=== PATIENT | female | born 1940 | race Caucasian/White ===

== ENCOUNTER 2019-09-11 08:34 | Observation (INO) | payer MEDICARE, MEDICAID ==
[~2019-09-11] VITALS: Ht 154.9 cm; Wt 86.4 kg
[2019-09-11 09:28] LABS: CKMB 10.1 U/L (0.0-3.6); CREATINE KINASE 290 UL (21-215)
[2019-09-11 09:30] LABS: TROPONIN-I 2.831 ng/mL (0.000-0.060)
[2019-09-11] MEDS ORDERED: BACLOFEN20 M1 PO (09:36)
[2019-09-11] MEDS ORDERED: LASIX40 MG PO (09:37)
[2019-09-11] MEDS ORDERED: LEXAPRO10 MG PO (09:37)
[2019-09-11] MEDS ORDERED: SYNTHROID100 MCG PO (09:38)
[2019-09-11] MEDS ORDERED: PROTONIX40 MG PO (09:38)
[2019-09-11] MEDS ORDERED: MIRAPEX1.5 MG PO (09:39)
[2019-09-11] MEDS ORDERED: K-TAB10 MEQ PO (09:39)
[2019-09-11] MEDS ORDERED: KEPPRA250 MG PO (09:40)
[2019-09-11] MEDS ORDERED: PROAIR HFA8.5 G1 INH (09:40)
[2019-09-11 09:41] VITALS: BP 93/59
--- NOTE | 2019-09-11 10:26 | NUR ---
TRANSFER FROM ER BY STRETCHER. CALL LIGHT IN REACH. WILL CONT. PLAN OF CARE.
[2019-09-11 10:39] LABS: BASOPHILS 0.2 % (0-2); EOSINOPHILS 0.6 % (0-7); HEMATOCRIT 40.2 % (36.0-48.0); HEMOGLOBIN 12.6 g/dL (12-16); IMMATURE GRANULOCYTES 0.2 % (0-5); LYMPHOCYTES 14.3 % (15-50); MCH 28.3 pg (26.0-34.0); MCHC 31.3 g/dL (31.0-37.0); MCV 90.1 fL (80.0-100.0); MEAN PLATELET VOLUME 11.2 fL (7.4-10.4); MONOCYTES 4.1 % (2-11); NEUTROPHILS 80.6 % (40-80); PLATELET COUNT 197 10x3/uL (130-400); RBC 4.46 10x6/uL (4.00-5.40); RDW 14.2 % (11.5-14.5); WBC 10.3 10x3/uL (4.8-10.8)
[2019-09-11 10:41] VITALS: BP 98/50; Ht 154.9 cm; Wt 86.4 kg
[2019-09-11 10:47] LABS: INR 1.03 (0.85-1.17); PROTIME 13.4 SECONDS (11.6-15.0)
[2019-09-11 10:49] LABS: D-DIMER-QUANTITATIVE 0.89 ug/mLFEU (0.20-0.54)
[2019-09-11 10:50] LABS: ALBUMIN 3.8 g/dL (3.4-5.0); BILIRUBIN - TOTAL 0.28 mg/dL (0.2-1.3); CALCIUM 8.4 mg/dL (8.5-10.1); CARBON DIOXIDE 28.3 mmol/L (21.0-32.0); CREATININE - SERUM 1.2 mg/dL (0.6-1.3); POTASSIUM - SERUM 4.3 mmol/L (3.5-5.1); PROTEIN - SERUM 6.9 g/dL (6.4-8.2)
[2019-09-11 12:14] VITALS: BP 105/51
--- NOTE | 2019-09-11 13:59 | NUR ---
ECHO DONE AT BEDSIDE.
[2019-09-11 15:23] VITALS: BP 94/55
[2019-09-11 20:00] VITALS: BP 91/49
[2019-09-12] VITALS: BP 92/56
[2019-09-12 04:00] VITALS: BP 83/39
--- NOTE | 2019-09-12 04:07 | NUR ---
I have reviewed this patient and I concur with the Shift Assessment completed by the Licensed Practical Nurse today this shift.
[2019-09-12 06:49] LABS: BASOPHILS 0.2 % (0-2); HEMATOCRIT 36.9 % (36.0-48.0); HEMOGLOBIN 11.4 g/dL (12-16); LYMPHOCYTES 21.8 % (15-50); MCH 28.1 pg (26.0-34.0); MCHC 30.9 g/dL (31.0-37.0); MCV 90.9 fL (80.0-100.0); MEAN PLATELET VOLUME 11.1 fL (7.4-10.4); MONOCYTES 7.1 % (2-11); NEUTROPHILS 68.9 % (40-80); PLATELET COUNT 176 10x3/uL (130-400); RBC 4.06 10x6/uL (4.00-5.40); RDW 14.5 % (11.5-14.5)
[2019-09-12 07:02] LABS: WBC 5.5 10x3/uL (4.8-10.8)
[2019-09-12 08:00] VITALS: BP 84/43
[2019-09-12 08:37] LABS: ALBUMIN 3.3 g/dL (3.4-5.0); ALKALINE PHOSPHATASE 50 U/L (30-120); ALT (SGPT) 19 U/L (10-68); BILIRUBIN - TOTAL 0.35 mg/dL (0.2-1.3); CALC OSMOLALITY 283 mosm/kg (275-300); CARBON DIOXIDE 28.6 mmol/L (21.0-32.0); CHLORIDE - SERUM 106 mmol/L (98-107); CREATINE KINASE 352 UL (21-215); CREATININE - SERUM 0.9 mg/dL (0.6-1.3); GLUCOSE 91 mg/dL (74-106); POTASSIUM - SERUM 4.6 mmol/L (3.5-5.1); SODIUM 142 mmol/L (136-145); UREA NITROGEN 14 mg/dL (7-18); eGFR NON AFRICAN AMERICAN 64 mL/min (90-120)
[2019-09-12 08:38] LABS: TROPONIN-I 2.058 ng/mL (0.000-0.060)
--- NOTE | 2019-09-12 10:00 | NUR ---
PT'S DAUGHTER IN [facility] DEMANDING FOR RIGHT AC IV TO BE TAKEN OUT OF PT. YANIQUE;KARRI RN DC'D RIGHT AC IV AND INSERTED A LEFT FA 22G IV.
--- NOTE | 2019-09-12 11:23 | NUR ---
DR. GARCIA STATES TO ME HE IS OK FOR PT TO D/C TODAY. I VERBALIZED UNDERSTANDING.
[2019-09-12] MEDS ORDERED: LOPRESSOR25 MG PO (11:46)
[2019-09-12] MEDS ORDERED: LIPITOR20 MG PO (11:46)
[2019-09-12] MEDS ORDERED: ASPIRIN325 MG PO (11:55)
--- NOTE | 2019-09-12 13:24 | NUR ---
PT LUCY. TELEMETRY LUCY'Emiliano.
[2019-09-12] MEDS ORDERED: NITROSTAT0.4 MG SL (13:46)
--- NOTE | 2019-09-12 14:40 | NUR ---
LEFT FA 22G IV DC'D WITH CATH INTACT. DISCHARGE INSTRUCTIONS AND TEACHING DONE WITH PT AND PT'S DAUGHTER WHO IS AT BEDSIDE. ALL QUESTIONS ANSWERED AND THEY HAVE NO FURTHER QUESTIONS. PT STATES SHE WANTS [employer] TO SIGN HER CHART COPY PAPERWORK. DAUGHTER SIGNED DISCAHRGE CHART COPY. PT'S DAUGHTER STATES THEIR RIDE IS ON THE WAY TO PICK THEM UP. I VERBALIZED UNDERSTANDING.
--- NOTE | 2019-09-12 15:17 | NUR ---
PT TAKEN OUT VIA WC BY RESEARCH FELLOW AND LEFT WITH ALL BELONGINGS AND DAUGHTER IN PERSONAL VEHICLE.
--- NOTE | 2019-09-13 07:32 | EC ---
PATIENT:LINNEA GÓMEZ DATE OF SERVICE: 09/11/19 SEX: F MEDICAL RECORD: [id number] DATE OF : 40 LOCATION:D.M2 D.211 AGE OF PATIENT: 79 ADMISSION DATE: 09/11/19 REFERRING PHYSICIAN: INTERPRETING PHYSICIAN: JUAN CARLOS GARCIA MD ECHOCARDIOGRAM REPORT ECHO CHARGES 4 ECHO COMPLETE Date: 09/11/19 CLINICAL DIAGNOSIS: NSTEMI ECHOCARDIOGRAPHIC MEASUREMENTS (adult normal given) AC root (d.<3.7cm) 3.2 cm LV Septum d (<1.2 cm> 0.7 cm Valve Excursion 1.9 cm LV Septum (systole) 1.1 cm Left Atria (s.<4.0cm> 3.7 cm LVPW d(<1.2cm) 1.0 cm RV (d.<2.3cm) 2.0 cm LVPW (sytole) 1.5 cm LV diastole(<5.6CM) 7.3 cm MV E-F(>70mm/sec) cm LV systole 5.9 cm LVOT Diameter 2.0 cm MV exc.(>10mm) cm Est.ejection fraction (50-75%) % DOPPLER: LVIT cm/sec A 80 cm/sec E 72 cm/sec LA cm/sec RVSP 30.9 mmHg LVOT 77 cm/sec AOP1/2T m/s Asc. Ao 137 cm/sec RVOT 60 cm/sec RA cm/sec PA 67 cm/sec AV Gradient Peak 7.5 mmHg AV Mean 4.3 mmHg AV Area 1.6 cm MV Gradient Peak 2.1 mmHg MV Mean 1.4 mmHg MV Area cm COMMENTS: Director Of [employer]: Maggie LINARES [place] Ship Laborer: Joao Garcia TAPE# PACS Pericardial Effusion N DATE OF SERVICE: PROCEDURE: Transthoracic echocardiogram. FINDINGS: 1. Left ventricle is mildly dilated. Ejection fraction is 40% with anterior septal hypokinesis. 2. Left atrium is normal size, shape, and function. 3. Aortic valve is normal. 4. Mitral valve has trace mitral regurgitation, otherwise normal. ECHOCARDIOGRAM REPORT [id number] LINNEA GÓMEZ 5. Tricuspid valve has trace tricuspid regurgitation. RVSP is 30.9 mmHg. 6. The right ventricle is normal size, shape, structure, and function. 7. Right atrium is normal. IMPRESSION: The patient has regional wall motion abnormalities suggestive of ischemic heart disease with ejection fraction around 40%. NTS:[id number] Voice Confirmation ID: [id number] DOCUMENT ID: [id number] JUAN CARLOS GARCIA MD at [id number] CC: [id number] DICTATION DATE: 09/12/19 1247 MANOMETER TECHNICIAN: [id number]/12/[id number] DIS IN 09/12/19 [place] [id number] [place] [id number]
== END 2019-09-12 15:18 | disposition home or self-care (01) ==
LOC: D.ER 08:34 → D.M2 09:31 → OBSVTIME 09-12 → D.M2 09-12 15:18
PROVIDERS: Family Medicine; ADMIT Emergency Medicine; ATTEND Emergency Medicine
DX: I21.4 Non-ST elevation (NSTEMI) myocardial infarction (principal); J81.1 Chronic pulmonary edema; E03.9 Hypothyroidism, unspecified; J44.9 Chronic obstructive pulmonary disease, unspecified; F32.9 Major depressive disorder, single episode, unspecified; R06.02 Shortness of breath; I25.10 Atherosclerotic heart disease of native coronary artery without angina pectoris

== ENCOUNTER 2019-09-17 11:15 | Inpatient (IN) | payer MEDICARE ==
[~2019-09-17] VITALS: Ht 154.9 cm; Wt 88.9 kg
[2019-09-17] VITALS (32 sets, daily range): BP systolic 76–128; BP diastolic 35–74; BMI 36.3
--- NOTE | ~2019-09-17 | HEMODYNAMI ---
PATIENT:LINNEA GÓMEZ MEDICAL RECORD: [id number] : 40 LOCATION:NAVARRO [facility] ADMISSION DATE: 09/17/19 Generatedon:09/18/201915:01 Patient name: LINNEA GÓMEZ Patient #: [id number] SSN: [id number] : 1940 Date of study: 09/18/2019 Page: Of Hemodynamic Procedure Report Patient Data Patient Demographics Procedure consent was obtained First Name: LINNEA Gender: Female Last Name: DALIA : 1940 Patient #: [id number] Age: 79 year(s) Race: SSN: [id number] Additional ID: [id number] Contact details [address]: [address] [place] [address] State: [place] City: [place] Zip code: [address] Past Medical History Allergies Allergen Reaction Date Comments Reported Other allergy 09/18/2019 NK Admission Admission Data Admission Date: 09/17/2019 Admission Time: 13:23 Arrival Date: 09/18/2019 Arrival Time: 0:00 Room #: MARCOS Height (in.): 61.02 BSA: 1.86 (m2) Height (cm.): 155 BMI: 36.21 (kg/m2) Weight (lbs.): 191.8 Weight (kg.): 87 Lab Results Lab Result Date: 09/18/2019 Lab Result Time: 0:00 Biochemistry Name Units Result Min Max BUN mg/dl 25 --(----)-* 7 18 CK-MB ng/ml 4 --(----)*- 0 3.6 Creatinine mg/dl 1.2 --(---*)-- 0.6 1.3 Creatinine l 190 --(---*)-- 21 215 Kinase eGFR ml/min 46 *-(----)-- 90 120 NONAFRICAN Troponin l ng/ml 0.072 --(----)*- 0 0.06 CBC Name Units Result Min Max Hematocrit % 36.8 *-(----)-- 42 54 Hemoglobin g/dl 11.7 *-(----)-- 13.5 17.5 Procedure Procedure Types Cath Procedure Diagnostic Procedure [facility] w/Coron[facility] Procedure Description Procedure Date Procedure Date: 09/18/2019 Procedure Start Time: 14:49 Procedure End Time: 14:58 Procedure Staff Name Function Esau Vera MD Performing Physician Mady Waterman RT Monitor Viv Lewis RT Scrub Janice Diane RN Nurse Indication Chest pain Procedure Data Cath Procedure Fluoroscopy Diagnostic fluoroscopy Total fluoroscopy Time: 1.1 time: 1.1 min min Diagnostic fluoroscopy Total fluoroscopy dose: 517 dose: 517 mGy mGy Contrast Material Contrast Material Type Amount (ml) Isovue 300 45 Entry Location Entry Primary Successful Side Size Upsize Upsize Entry Closure Succes sful Closure Location (Fr) 1 (Fr) 2 (Fr) Remarks Device Remarks Femoral Right 5 Fr Exoseal artery Estimated blood loss: 10 ml Diagnostic catheters Device Type Used For End Catheter Placement MULTIPACK JL 4.0 5Fr Procedure catheter MULTIPACK 3DRC 5Fr Procedure catheter MULTIPACK Pigtail 5 Fr Ventriculography catheter Procedure Complications No complications Procedure Medications Medication Administration Route Dosage 0.9% NaCl I.V. 100 ml/hr Oxygen 6 l/min Lidocaine 2% added to field 20 Heparin Flush Bag added to field 2 bags (1000units/500ml NS) Versed I.V. 1 mg Hemodynamics Rest BSA: 1.86 (m2) HGB: 11.7 (g/dl) O2 Consumption: Estimated: 167.15 (ml/min) O2 Co nsumption indexed: Estimated:89.87 (ml/min/m) Heart Rate: 69 (bpm) Pressure Samples Time Site Value (mmHg) Purpose Heart Use Rate(bpm) 14:53 LV 109/25,32 Snapshot 77 Gradients Valve Time Site Site Mean SEP/DFP Peak To Heart Use 1 2 (mmHg) (sec/min) Peak Rate (mmHg) (bpm) Aortic 14:53 LV AO 74 Snapshots Pre Cath Intra NCS Post Cath Vital Signs Time Heart Resp SPO2 etCO2 NIBP Rhythm Pain Sedation Rate (ipm) (%) (mmHg) (mmHg) Status Level (bpm) 14:17:25 69 16 100 0 107/59(81) NSR 0 (11) 10(A) , No pain 14:21:42 66 14 96 0 117/52(85) NSR 0 (11) 10(A) , No pain 14:25:55 66 10 99 0 107/57(87) NSR 0 (11) 10(A) , No pain 14:30:05 65 15 100 0 117/64(86) NSR 0 (11) 10(A) , No pain 14:34:13 68 19 99 0 118/63(96) NSR 0 (11) 10(A) , No pain 14:39:12 66 12 99 0 Measuring NSR 0 (11) 10(A) , No pain 14:39:31 67 12 99 0 113/63(82) NSR 0 (11) 10(A) , No pain 14:43:39 62 12 100 0 113/59(77) NSR 0 (11) 10(A) , No pain 14:48:38 67 16 99 0 Measuring NSR 0 (11) 10(A) , No pain 14:48:42 67 16 98 0 109/58(82) NSR 0 (11) 10(A) , No pain 14:52:54 65 16 98 0 121/62(89) NSR 0 (11) 10(A) , No pain 14:57:08 64 13 100 0 109/61(80) NSR 0 (11) 10(A) , No pain Medications Time Medication Route Dose Verified Delivered Reason Notes Effe ctiveness by by 14:16:11 Oxygen HFNC 6 Esau Janice for low 02 l/min St Tarik Diane satjen BAIRD RN 14:16:11 0.9% NaCl I.V. 100 Esau Janice used for ml/hr ChuyTarik Diane procedure MD SCOTT 14:16:31 Lidocaine 2% added 20ml Esau Cifuentes for local to vial [facility] John anesthetic field MD BAIRD 14:16:38 Heparin Flush added 2 Esau Cifuentes used for Bag to bags St Tarik Vera procedure (1000units/500ml field MD BAIRD NS) 14:48:18 Versed I.V. 1 mg Esau Janice for ChuyTarik Diane sedation pediatric social worker Log Time Note 13:43:24 Informed consent obtained and on chart 13:44:38 ACC Patient presents with Non-STEMI CCS Anginal Class 3--Marked limitation of physical activity, angina occurs with ordinary activity.. 14:00:28 Indication : Chest pain 14:02:02 Lab Result : Creatinine 1.2 mg/dl 14:02:02 Lab Result : BUN 25 mg/dl 14:02:02 Lab Result : Hemoglobin 11.7 g/dl 14:02:02 Lab Result : Hematocrit 36.8 % 14:02:02 Lab Result : eGFR NONAFRICAN 46 ml/min 14:02:02 Lab Result : CK-MB 4 ng/ml 14:02: Lab Result : Creatinine Kinase 190 l 14:02: Lab Result : Troponin l 0.072 ng/ml 14:02:10 Arrival Date: 09/18/2019 12:00:00 AM 14:02:15 Patient Height : 61.02 inches 14:02:19 Patient Weight : 191.8 lbs 14:02:35 Procedure Status Urgent Heart Cath (IP). 14:02:39 Janice Diane RN sent for patient. Start room use. 14:02:42 Time tracking: Regular hours (M-F 7:00 - 5:00) 14:02:49 Plan of Care:Hemodynamics will remain stable., Cardiac rhythm will remain stable., Comfort level will be maintained., Respiratory function will remain adequate., Patient/ family verbilizes understanding of procedure., Procedure tolerated without complication., Recovers from procedure without complications.. 14:03:14 Patient allergic to Other allergyNKDA 14:07:40 Patient received from CVICU to CCL 1 Alert and oriented. Tansferred to table in Supine position. 14:07:43 Warm blankets applied, and yonatan hugger turned on for patient comfort. 14:07:44 Correct patient and procedure confirmed by team. 14:07:44 ECG and BP/O2 sat monitors applied to patient. 14:15:59 Vital chart was started 14:16:11 Oxygen 6 l/min HFNC was administered by Janice Diane RN; for low 02 sats; Verbal order read back and verified. 14:16:11 0.9% NaCl 100 ml/hr I.V. was administered by Janice Diane RN; used for procedure; Verbal order read back and verified. 14:16:31 Lidocaine 2% 20ml vial added to field was administered by Esau Vera MD; for local anesthetic; Verbal order read back and verified. 14:16:38 Heparin Flush Bag (1000units/500ml NS) 2 bags added to field was administered by Esau Vera MD; used for procedure; Verbal order read back and verified. 14:18:07 Baseline sample Acquired. 14:18:13 Rhythm: sinus rhythm 14:18:16 Full Disclosure recording started 14:18:38 H&P Date Dictated: 09/17/2019 Within 30 days and on chart., H&P Addendum completed by physician on day of procedure. (MUST COMPLETE FOR ALL OUTPATIENTS). 14:18:40 Pre-procedure instructions explained to patient. 14:18:43 Family unavailable. 14:18:45 Patient NPO since Midnight. 14:18:50 Is the patient allergic to Iodine/contrast media? No. 14:18:58 Is patient on blood thinner?No 14:19:01 Patient diabetic? No. 14:19:07 Snore? Unknown 14:19:09 Sleep apnea? No 14:19:14 Airway obstruction? Yes copd 14:21:14 Dentures? No ? 14:21:21 Patient pain scale 0/10 ?. 14:21:33 IV patent on arrival in right forearm with 0.9% NaCl at [facility]. 14:21:38 Lab results completed and on chart. 14:21:46 Right groin area was prepped with chlora-prep and draped in sterile fashion 14:21:50 Alarms reviewed by R. N. 14:21:52 Sharps counted by scrub and verified by R.N. 14:21:53 Physician paged 14:23:03 Use device set Femoral Dx 14:23:05 ACIST Syringe (15472) opened to sterile field. 14:23:06 Bag Decanter (2002) opened to sterile field. 14:23:06 Medline Cath Pack ([id number]) opened to sterile field. 14:23:07 ACIST Hand Control (23515) opened to sterile field. 14:23:07 ACIST Manifold (03883) opened to sterile field. 14:23:08 DIAGNOSTIC Multipack 5Fr catheter set (CF0903) opened to sterile field. 14:23:11 Tegaderm 4 x 4 (1626W) opened to sterile field. 14:23:12 SHEATH 5FR Braddock (ZVH679) opened to sterile field. 14:23:13 EMERALD Guide Wire (942-817) opened to sterile field. 14:25:06 Pt arrived to CL on HFNC @ 6L. REN EtCO2 d/t HFNC. 14:47:49 Physician arrived 14:47:49 --------ALL STOP TIME OUT------ 14:47:50 Final Timeout: patient, procedure, and site verified with staff and physician. All members of the team are in agreement. 14:47:52 Right groin site verified by team. 14:47:58 Fire Safety Assessment: A--An alcohol-based skin anteseptic being used preoperatively., C--Open oxygen or nitrous oxide is being used., D--An ESU, laser, or fiber-optic light is being used. 14:48:03 Physical assessment completed. ASA score P 3 - A patient with severe systemic disease as per Esau Vera MD. 14:48:09 2) 60-89 Mildly reduced kidney function, and other findings (as for stage 1) point to kidney disease. 14:48:16 Maximum allowable contrast dose (3.7 X eGFR X 0.75)127 ml. 14:48:18 Versed 1 mg I.V. was administered by Janice Diane RN; for sedation; Verbal order read back and verified. 14:48:20 Sedation plan: IV Moderate Sedation Medication:Versed, Fentanyl 14:48:48 Procedure started. 14:49:01 Local anesthetic to right femoral artery with Lidocaine 2% by Esau Vera MD.INITIAL ACCESS ONLY 14:49:17 A 5 Fr sheath was inserted into the Right Femoral artery 14:49:22 j wire advanced. 14:49:53 A MULTIPACK JL 4.0 5Fr catheter was advanced over the wire and used for Procedure. 14:49:58 LCA angiography performed. 14:50:22 Catheter removed. 14:51:03 A MULTIPACK 3DRC 5Fr catheter was advanced over the wire and used for Procedure. 14:51:07 RCA angiography performed. 14:52:00 Catheter removed. 14:52:07 A MULTIPACK Pigtail 5 Fr catheter was advanced over the wire and used for Ventriculography. 14:52:10 LV gram done using YARBROUGH 14:53:57 EF : 25 % 14:53:59 Catheter removed. 14:54:02 EXOSEAL 5Fr (EX500) opened to sterile field. 14:54:17 Sheath removed intact; hemostasis achieved with Exoseal to the Right Femoral artery. 14:54:39 Procedure ended.(Physican Out) 14:55:40 Fluoroscopy time 01.10 minutes. 14:55:52 Fluoroscopy dose: 517 mGy 14:55:52 Flurop Dose total: 517 14:55:58 Dose Area Product 80830 mGy/cm. 14:56:05 Contrast amount:Isovue 300 45ml. 14:56:09 Maximum allowable dose exceeded? No. 14:56:12 Insertion/operative site no bleeding no hematoma. 14:56:17 Post-op/insertion site Right Femoral artery dressed using a 4 x 4 and Tegaderm. 14:56:20 Post Procedure Pulses reassessed and unchanged 14:56:25 Post-procedure physical assessment completed. ASA score P 3 - A patient with severe systemic disease as per Esau Vera MD. 14:56:28 Post procedure rhythm: sinus rhythm 14:56:32 Estimated blood loss: 10 ml 14:56:35 Post procedure instruction explained to patient.Patient verbalizes understanding. 14:57:13 Procedure and supply charges have been captured, reviewed, submitted and are correct. 14:57:33 Procedure Complication : No complications 14:57:38 Vital chart was stopped 14:58:10 [facility] Findings: MVD- manage w/ optimal medication therapy 14:58:18 Report given to Pre/Post Procedure Room. 14:58:24 Patient transfered to Pre/Post Procedure Room with Bed. 14:58:27 Procedure ended. 14:58:27 Full Disclosure recording stopped 14:58:33 End room use (Document Last) 14:58:34 End room use (Document Last) 14:59:54 End room use (Document Last) 15:00:21 End room use (Document Last) Device Usage Item Name Manufacture Quantity Catalog Hospital Part Current Minimal L ot# / Number Charge Number Stock Stock Serial# Code ACIST Acist 1 19737 [id number] 226307 110267 20 Syringe Medical (45212) Systems Inc Bag Microtek 1 800642 33942 259803 5 Decanter Medical Inc. () Medline Medline 1 [id number] 988160 06486 300177 5 Cath Pack ([id number]) ACIST Hand Acist 1 69566 114549 682156 933935 5 Control Medical (97054) Systems Inc ACIST Acist 1 42685 927225 573748 409861 5 Manifold Medical (76102) Systems Inc DIAGNOSTIC Cardinal 1 [id number] 311141 99653 583670 30 Multipack Health 5Fr catheter set (RV1873) Tegaderm 4 3M 1 1626W 619706 888649 680730 5 x 4 (1626W) SHEATH 5FR Terumo 1 MAF924 488106 788693 852473 5 Braddock (BKI566) EMERALD Cardinal 1 502-455 988615 263678 007503 5 Guide Wire Health (502455) MULTIPACK Cardinal 1 330448 5 JL 4.0 5Fr Health catheter MULTIPACK Cardinal 1 765310 5 3DRC 5Fr Health catheter MULTIPACK Cardinal 1 467715 5 Pigtail 5 Health Fr catheter EXOSEAL 5Fr Cardinal 1 EX500 287313 893503 210409 10 (EX500) Health Signature Audit [place] Stage Time Signature Unsigned Intra-Procedure 09/18/2019 Janice Diane 2:59:54 PM RN Intra-Procedure 09/18/2019 Mady Waterman 3:00:21 PM RT(R) Intra-Procedure 09/18/2019 Esau Troy 3:01:42 PM Tarik BAIRD [place] [id number] [place] [address]
[~2019-09-17 11:15] MED LIST: ASPIRIN325 MG PO; BACLOFEN20 M1 PO; K-TAB10 MEQ PO; KEPPRA250 MG PO; LASIX40 MG PO; LEXAPRO10 MG PO; LIPITOR20 MG PO; LOPRESSOR25 MG PO; MIRAPEX1.5 MG PO; NITROSTAT0.4 MG SL; PROAIR HFA8.5 G1 INH; PROTONIX40 MG PO; SYNTHROID100 MCG PO
[2019-09-17] MEDS ORDERED: ULTRAM50 MG PO (11:33)
[2019-09-17 12:32] LABS: BASOPHILS 0 % (0-2); EOSINOPHILS 0.2 % (0-7); HEMATOCRIT 36.8 % (36.0-48.0); HEMOGLOBIN 11.7 g/dL (12-16); IMMATURE GRANULOCYTES 0.2 % (0-5); LYMPHOCYTES 14.8 % (15-50); MCH 28.3 pg (26.0-34.0); MCHC 31.8 g/dL (31.0-37.0); MCV 89.1 fL (80.0-100.0); MEAN PLATELET VOLUME 11.1 fL (7.4-10.4); MONOCYTES 2.4 % (2-11); NEUTROPHILS 82.4 % (40-80); PLATELET COUNT 184 10x3/uL (130-400); RBC 4.13 10x6/uL (4.00-5.40); RDW 14.7 % (11.5-14.5); WBC 5.9 10x3/uL (4.8-10.8)
[2019-09-17 12:43] LABS: CALC OSMOLALITY 288 mosm/kg (275-300); CARBON DIOXIDE 30.6 mmol/L (21.0-32.0); CHLORIDE - SERUM 106 mmol/L (98-107); CREATININE - SERUM 1.2 mg/dL (0.6-1.3); GLUCOSE 130 mg/dL (74-106); POTASSIUM - SERUM 3.9 mmol/L (3.5-5.1); SODIUM 142 mmol/L (136-145); UREA NITROGEN 25 mg/dL (7-18); eGFR NON AFRICAN AMERICAN 46 mL/min (90-120)
--- NOTE | 2019-09-17 12:49 | NUR ---
PT LAYING IN BED. NO DISTRESS NOTED. COLOR WNL FOR RACE. LEVOPHED INITIATED AT THIS TIME. DENIES CHEST PAIN.
[2019-09-17 12:50] LABS: APTT 26.5 SECONDS (22.8-39.4); INR 1.01 (0.85-1.17); PROTIME 13.3 SECONDS (11.6-15.0)
[2019-09-17 13:04] LABS: ALBUMIN 3.7 g/dL (3.4-5.0); ALKALINE PHOSPHATASE 56 U/L (30-120); ALT (SGPT) 38 U/L (10-68); CREATINE KINASE 190 UL (21-215); MAGNESIUM - SERUM 2.3 mg/dL (1.8-2.4)
[2019-09-17 13:14] LABS: TROPONIN-I 0.072 ng/mL (0.000-0.060)
--- NOTE | 2019-09-17 15:15 | NUR ---
RECEIVED BY BILL FROM ED WITH ED STAFF IN ATTENDANCE. AWAKE AND ALERT. DENIES PAIN OR SOB. NOREPINEPHRINE INFUSING VIA PUMP AT 5MCG/MIN. NS INITIATED AT 100 ML/HR TO RIGHT AC PIV SITE. PATIENT IS WEARING SUNGLASSES. STATES SHE IS SENSITIVE TO LIGHT DUE TO PREVIOUS CATARAC SURGERY. C/O HUNGER. ROUTINE ADMISSION PROCEDURES DONE.
--- NOTE | 2019-09-17 15:45 | NUR ---
SNACK OF APPLESAUCE AND MILK GIVEN AFTER DIET CONFIRMED.
--- NOTE | 2019-09-17 17:00 | NUR ---
CARDIAC DIET GIVEN. CONSUMED 100%. DENIES PAIN OR SOB. NOREPINEPHRINE CONTINUES AT 5MCG/MIN. BP STABLE. OCCUPATIONAL HEALTH COORDINATOR SHOWS SINUS RHYTHM WITH EPISODES OF FREQUENT PVCS.
--- NOTE | 2019-09-17 19:00 | NUR ---
REPORT RECEIVED. PT AAOX4, WITH SLOW TO RESPOND SPEECH. ASSESSMENT COMPLETED, SEE FLOWSHEET. PIV IN RT AC INFUSING, SEE IV FLOWSHEET. PT HAS SUNGLASSES ON PER LIGHT SENSITIVITY RELATED TO PREVIOUS CATARACT SURGERY STATED BY PATIENT. WILL CONTINUE TO MONITOR.
[2019-09-17 19:22] LABS: CKMB 2.9 U/L (0.0-3.6); CREATINE KINASE 164 UL (21-215)
[2019-09-17 19:26] LABS: TROPONIN-I 0.074 ng/mL (0.000-0.060)
--- NOTE | 2019-09-17 21:00 | NUR ---
PT C/O PAIN IN RIGHT SHOULDER, NOT RADIATING. REPOSITIONED FOR COMFORT.
--- NOTE | 2019-09-17 23:00 | NUR ---
REASSESSMENT COMPLETED, SEE FLOWSHEET. PT C/O PAIN IN RIGHT UPPER ABDOMEN AT THIS TIME. REPOSITIONED FOR COMFORT. SERJIO MIRZA APN PAGED, UPDATED ON PT STATUS, NEW ORDERS RECEIVED.
[2019-09-18] VITALS (56 sets, daily range): BP systolic 50–160; BP diastolic 18–85
--- NOTE | 2019-09-18 01:00 | NUR ---
PT C/O RIGHT SIDED SHOULDER/CHEST PAIN ONCE AGAIN, MEDICATION ADMINISTERED PER MAR. WILL CONTINUE TO MONITOR.
[2019-09-18 01:06] LABS: CKMB 2.2 U/L (0.0-3.6); CREATINE KINASE 129 UL (21-215)
[2019-09-18 01:07] LABS: TROPONIN-I 0.104 ng/mL (0.000-0.060)
--- NOTE | 2019-09-18 03:00 | NUR ---
REASSESSMENT COMPLETED, SEE FLOWSHEET. PT STATED NO PAIN AT THIS TIME. WILL CONTINUE TO MONITOR.
--- NOTE | 2019-09-18 05:00 | NUR ---
PT SITTING UP IN CHAIR, NO ACUTE DISTRESS NOTED.
[2019-09-18 05:22] LABS: BASOPHILS 0.1 % (0-2); EOSINOPHILS 0.5 % (0-7); HEMATOCRIT 37.5 % (36.0-48.0); HEMOGLOBIN 11.9 g/dL (12-16); IMMATURE GRANULOCYTES 0.1 % (0-5); LYMPHOCYTES 24.1 % (15-50); MCH 28.5 pg (26.0-34.0); MCHC 31.7 g/dL (31.0-37.0); MCV 89.9 fL (80.0-100.0); MEAN PLATELET VOLUME 10.7 fL (7.4-10.4); MONOCYTES 7.5 % (2-11); NEUTROPHILS 67.7 % (40-80); PLATELET COUNT 210 10x3/uL (130-400); RBC 4.17 10x6/uL (4.00-5.40); RDW 14.9 % (11.5-14.5)
[2019-09-18 05:42] LABS: ALBUMIN 3.3 g/dL (3.4-5.0); ALKALINE PHOSPHATASE 50 U/L (30-120); ALT (SGPT) 33 U/L (10-68); BILIRUBIN - TOTAL 0.35 mg/dL (0.2-1.3); CALC OSMOLALITY 289 mosm/kg (275-300); CALCIUM 7.9 mg/dL (8.5-10.1); CARBON DIOXIDE 26.5 mmol/L (21.0-32.0); CHLORIDE - SERUM 109 mmol/L (98-107); CKMB 2.6 U/L (0.0-3.6); CREATINE KINASE 113 UL (21-215); CREATININE - SERUM 1.2 mg/dL (0.6-1.3); GLUCOSE 106 mg/dL (74-106); MAGNESIUM - SERUM 2.3 mg/dL (1.8-2.4); PHOSPHOROUS 3.9 mg/dL (2.5-4.9); POTASSIUM - SERUM 3.8 mmol/L (3.5-5.1); PROTEIN - SERUM 6.6 g/dL (6.4-8.2); SODIUM 144 mmol/L (136-145); TROPONIN-I 0.102 ng/mL (0.000-0.060); UREA NITROGEN 21 mg/dL (7-18); eGFR NON AFRICAN AMERICAN 46 mL/min (90-120)
--- NOTE | 2019-09-18 07:34 | NUR ---
PT HAS SOB, O2 SAT DROPPING TO 90 ON 3L O2. HR 113, DR CABA SPOKEN WITH, UPDATED ON STATUS, NEW ORDERS RECEIVED. PULMONOLOGY CONSULTED, AWAITING CALL BACK. PT COUGHING UP THICK, BOCANEGRA SPUTUM.
--- NOTE | 2019-09-18 07:47 | NUR ---
PT TRANSFERRED FROM CHAIR BACK TO BED. SOB, ON 15L 02 VIA HIGH FLOW NC. COUGHING UP THINK BOCANEGRA MUCUS. HR 100S. HOB ELEVATED 60 DEGREES. WILL CONTINUE TO MONITOR.
--- NOTE | 2019-09-18 08:30 | NUR ---
CARDIOLOGY AT BEDSIDE. MADE AWARE OF SOB EPISODE THIS MORNING. ORDERED LASIX 40MG IV X ONE.
--- NOTE | 2019-09-18 09:15 | NUR ---
18FR ADAMS CATHERTER INSERTED PER ORDER. STERILE TECHNIQUE USED. TOLERATED WELL. PULLED UP AND REPOSITIONED FOR COMFORT. CLEAN PAD PROVIDED. NO FURTHER NEEDS AT THIS TIME.
[2019-09-18 09:25] LABS: CHOL - HDL RATIO 3.1 ratio (2.3-4.1); LDL-HDL RATIO 1.7 ratio (1.5-3.5)
--- NOTE | 2019-09-18 10:20 | NUR ---
SPOKE WITH JOSE QUIROZ WITH CARDIOLOGY REGARING REDRAW OF MORNING LABS. NO NEED TO RE-DRAW MORNING LABS AT THIS TIME PER CARDIOLOGY.
--- NOTE | 2019-09-18 10:29 | NUR ---
CONSENT FORMS SIGNED FOR CATH PROCEDURE. BLOOD CONSENT FORM SIGNED AND PLACED IN CHART. PT RESTING COMFORTABLY. 02 SAT 97% ON 8L O2 VIA HIGH FLOW NC.
--- NOTE | 2019-09-18 10:39 | NUR ---
CALL RECEIVED FROM VALERI TATUM. PASSCODE VERIFIED. BRIEF UPDATE GIVEN. HER PHONE NUMBER IS [phone].
--- NOTE | 2019-09-18 11:23 | NUR ---
GROIN AREA SHAVED PER ORDER. CHG BATH GIVEN. PT RESTING COMFORTABLY. WILL CONTINUE TO MONITOR.
--- NOTE | 2019-09-18 14:03 | NUR ---
PREOP MEDS GIVEN, PT TO SENIOR ETL DEVELOPER WITH SENIOR ETL DEVELOPER STAFF
--- NOTE | 2019-09-18 15:23 | NUR ---
PT ARRIVED FROM CIVIL CADD TECHNICIAN. ON 6L O2 VIA HIGH FLOW NC. RIGHT GROIN CATH INSERTION SITE WITH DRESSING C/D/I. SOFT TO PALMPATION. NO TEMPERATURE. SPB 90S. WILL CONTINUE TO MONITOR.
--- NOTE | 2019-09-18 15:37 | NUR ---
SPOKE WITH LOPEZ SAGASTUME'S DAUGHTER. PASSCODE VERIFIED. WANTS DR. BURRELL TO CALL HER AND GIVE UPDATE. HER PHONE NUMBER IS [phone].
--- NOTE | 2019-09-18 17:23 | NUR ---
BP 87/[address] CRAWFORD PAGED. WAITING FIGURE REFINISHER AND REPAIRER BACK.
--- NOTE | 2019-09-18 17:47 | NUR ---
SPOKE WITH DR. CRAWFORD. DOES NOT WANT LEVOPHED TO BE STARTED AT THIS TIME. BP 106/51 AT THIS TIME. WILL CONTINUE TO MONITOR.
--- NOTE | 2019-09-18 17:59 | NUR ---
SITTING UP IN BED EATING DINNER.
[2019-09-19] VITALS (57 sets, daily range): BP systolic 91–152; BP diastolic 24–74; Ht 154.9 cm; Wt 88.9 kg
[2019-09-19 04:20] LABS: BASOPHILS 0 % (0-2); EOSINOPHILS 0.6 % (0-7); HEMOGLOBIN 11.1 g/dL (12-16); IMMATURE GRANULOCYTES 0.2 % (0-5); LYMPHOCYTES 21.1 % (15-50); MCH 28.2 pg (26.0-34.0); MCHC 30.8 g/dL (31.0-37.0); MCV 91.6 fL (80.0-100.0); MEAN PLATELET VOLUME 10.8 fL (7.4-10.4); MONOCYTES 7.9 % (2-11); NEUTROPHILS 70.2 % (40-80); RBC 3.93 10x6/uL (4.00-5.40); WBC 6.3 10x3/uL (4.8-10.8)
[2019-09-19 04:26] LABS: PLATELET COUNT 162 10x3/uL (130-400)
[2019-09-19 04:39] LABS: ANION GAP 9.3 mmol/L (8-16); CALCIUM 7.7 mg/dL (8.5-10.1); CARBON DIOXIDE 31.5 mmol/L (21.0-32.0); MAGNESIUM - SERUM 2.2 mg/dL (1.8-2.4); PHOSPHOROUS 3.4 mg/dL (2.5-4.9); POTASSIUM - SERUM 3.8 mmol/L (3.5-5.1)
--- NOTE | 2019-09-19 07:30 | NUR ---
REPORT RECEIVED AND ASSESSMENT PERFORMED. PATIENT IS UP IN BEDSIDE CHAIR, AWAKE AND ALERT. VERY TEARFUL. VOICE TREMULOUS. HEAD AND JAW SHAKING. C/O PAIN TO RIGHT AC PIV SITE AND RIGHT GROIN CATH SITE. PIV SITE SLIGHTLY RED, NO SWELLING. ADAMS CATHETER INTACT TO BSD. UABLE TO ACCESS GROIN AT THIS TIME. PEDAL PULSE INTACT.
--- NOTE | 2019-09-19 08:20 | NUR ---
BREAKFAST SERVED. CRYING, SAYS SHE CAN'T EAT WITH HER ARM AND LEG HURTING.
--- NOTE | 2019-09-19 08:50 | NUR ---
TYLENOL 650MG GIVEN FOR PREVIOUS C/O PAIN AND GENERALIZED DISCOMFORT. ASSISTED BACK TO BED. RIGHT GROIN ASSESSED, NO SWELLING OR REDNESS PRESENT.
--- NOTE | 2019-09-19 09:45 | NUR ---
UP TO BSC. MODERATE FORMED BM. STATES PAIN IS "BETTER" 2/10 ON PAIN SCALE.
--- NOTE | 2019-09-19 10:30 | NUR ---
IV RESITED TO LEFT ANTERIOR HAND WITH 20GA CATHETER X 1 ATTEMPT. RIGHT AC PIV SITE D/C'D.
--- NOTE | 2019-09-19 12:30 | NUR ---
ASSISTED UP TO CHAIR FOR LUNCH. WANTS NURSE TO CALL DAUGHTERS TO COME GET HER AND TAKE HER HOME. EXPLAINED NEED FOR MEDICATION TO STRENGTHEN HEART. TEARFUL.
--- NOTE | 2019-09-19 12:30 | NUR ---
ASSISTED BACK TO BED. C/O NAUSEA AND HUNGER. "I CAN'T EAT. CALL MY DAUGHTERS TO COME GET ME". REINFORCEMENT OF HEALTH CONDITION AND NEED FOR MEDICATIONS.
--- NOTE | 2019-09-19 13:00 | NUR ---
ONDANSETRON 4MG IVP GIVEN FOR CONTINUED NAUSEA. MORPHINE 2MG GIVEN FOR C/O RIGHT GROIN PAIN 8/10 ON PAIN SCALE.
--- NOTE | 2019-09-19 14:00 | NUR ---
DAUGHTER AT BEDSIDE FOR VISIT. GROUP PHONE CALL WITH OTHER FAMILY MEMBERS. IN BETTER SPIRITS. STATES PAIN LEVEL IS NOW A 2/10.
--- NOTE | 2019-09-19 19:00 | NUR ---
ASSESSMENT COMPLETED PER FLOWSHEET. PT AWAKE AND ALERT, DENIES ANY DISCOMFORT AT THIS TIME. NSR IN CM WITH HR AT 65BPM. RT GROIN DRESSING C,D,I, NO S/S OF HEMATOMA OR BLEEDING NOTED. PPP. HOB UP. SIDE RAILS UP. CALL LIGHT AND BST IN REACH. CONT TO MONITOR.
--- NOTE | 2019-09-19 21:00 | NUR ---
PT C/O SCD'S CAUSE PAIN TO HER ANKLES. SCD'S REMOVED PER PT'S REQUEST. EXPLAINED THE IMPORTANCE TO USE SCD'S. PT TEARFUL. CPOC.
--- NOTE | 2019-09-19 22:40 | NUR ---
ASSISTED PT TO BATHROOM. MEDIUM FORMED STOOL RESULTED. KOBI CARE PROVIDED. BED PAD CHANGED. REPOSITIONED SELF IN BED. PT RUBY WELL. HOB UP. SIDE RAILS UP. CALL LIGHT IN REACH. CPOC.
--- NOTE | 2019-09-19 23:00 | NUR ---
REASSESSMENT COMPLETED. SEE FLOWSHEETS FOR ALL FINDINGS. NO ACUTE CHANGES IN PT'S STATUS NOTED. VSS. CPOC.
[2019-09-20] VITALS: BP 123/60
[2019-09-20 01:00] VITALS: BP 111/75
[2019-09-20 02:00] VITALS: BP 122/53
[2019-09-20 03:00] VITALS: BP 131/56
--- NOTE | 2019-09-20 05:00 | NUR ---
ASSISSTED TO BATHROOM. PT SMALL BM NOTED. BACK TO CHAIR. PT C/O FILLING WEAK. CALL LIGHT IN REACH. BST IN REACH. WILL CONT TO MONITOR.
[2019-09-20 05:16] LABS: BASOPHILS 0.2 % (0-2); EOSINOPHILS 1.4 % (0-7); HEMATOCRIT 34.5 % (36.0-48.0); HEMOGLOBIN 10.8 g/dL (12-16); IMMATURE GRANULOCYTES 0.2 % (0-5); MCH 28.4 pg (26.0-34.0); MCHC 31.3 g/dL (31.0-37.0); MCV 90.8 fL (80.0-100.0); MEAN PLATELET VOLUME 11.2 fL (7.4-10.4); MONOCYTES 7.3 % (2-11); NEUTROPHILS 68.9 % (40-80); PLATELET COUNT 177 10x3/uL (130-400); RDW 14.9 % (11.5-14.5); WBC 5.6 10x3/uL (4.8-10.8)
[2019-09-20 05:45] LABS: ANION GAP 11.7 mmol/L (8-16); CALCIUM 7.8 mg/dL (8.5-10.1); CARBON DIOXIDE 26.6 mmol/L (21.0-32.0); CREATININE - SERUM 0.8 mg/dL (0.6-1.3); MAGNESIUM - SERUM 2.1 mg/dL (1.8-2.4); PHOSPHOROUS 2.7 mg/dL (2.5-4.9); POTASSIUM - SERUM 4.3 mmol/L (3.5-5.1)
[2019-09-20 07:00] VITALS: BP 130/77
--- NOTE | 2019-09-20 08:06 | NUR ---
PT SITTING UP IN CHAIR AWAKE AT THIS TIME. VSS. NO ACUTE DISTRESS NOTED. PT DENIES ANY NEEDS OR DISCOMFORTS. STATES SHE IS READY TO GO HOME TODAY. WILL CONTINUE PLAN OF CARE.
--- NOTE | 2019-09-20 10:43 | NUR ---
PT TEARFUL STATING SHE WANTS TO BE OUT OF THE CHAIR AND BACK IN THE BED. NURSE ASKED PT IF SHE COULD STAY IN THE CHAIR UNTIL AFTER DR CABA, WHO WAS IN THE UNIT, GOT TO SEE HER AND THEN GO BACK TO BED. PT STATED, NO I JUST WANT TO GO HOME. DR CABA CAME INTO ROOM TO SEE PT AND TOLD PT THAT IF OKAY WITH PULMONOLOGY THEN SHE CAN GO HOME TODAY SINCE ALREADY OKAYED BY CARDIOLOGY, PT THEN STATED, "I DON'T CARE, EITHER WAY I AM GOING HOME TODAY." ALSO RECIEVED ORDERS FROM PHYSICIAN TO DC ADAMS AND SALINE LOCK IV. ADAMS DCD, CATHETER TIP INTACT. VSS. NO ACUTE DISTRESS NOTED. WILL CONTINUE PLAN OF CARE.
[2019-09-20 11:00] VITALS: BP 135/85
--- NOTE | 2019-09-20 11:05 | NUR ---
PT REQUESTED FOR STAFF TO CALL PTS FAMILY TO SEE WHEN THEY WERE COMING TO SEE HER. SPOKE WITH PTS FAMILY WHO STATE THEY ARE ON THEIR WAY FROM [place]. NOTIFIED PTS FAMILY THAT IF PULMONOLOGY IS OKAY WITH PT TO GO HOME THEN PT WILL BE DISCHARGED TODAY. WILL NOTIFY PTS FAMILY IF RECIEVES A DISCHARGE ORDER. VSS. PT UPDATED ON THIS CONVERSATION. WILL CONTINUE PLAN OF CARE.
[2019-09-20] MEDS ORDERED: ENTRESTO 24 MG1 EACH PO (11:41)
--- NOTE | 2019-09-20 14:04 | NUR ---
1200 REPORT RECEIVED FROM VIJAY SCOTT
--- NOTE | 2019-09-20 14:05 | NUR ---
1300 DR BURKS AT BEDSIDE EXPLAINING PROCEEDURE PERFORMED TO PATIENTS SON
--- NOTE | 2019-09-20 14:07 | NUR ---
1300 STARTED EVERY ONE HOUR URINE OUTPUTS ART LINE AND CVP ZEROED FOR ACCURACY
--- NOTE | 2019-09-20 15:26 | OP ---
PATIENT NAME: LINNEA GÓMEZ MEDICAL RECORD: [id number] :40 LOCATION:[facility] ADMISSION DATE:09/17/19 SURGEON: SUNNI AMARAL MD DATE OF OPERATION: 09/18/2019 PROCEDURE: Left heart catheterization, selective coronary angiography, a right femoral artery approach. CATHETERS: A 5-Kinyarwanda sheath, 5/4 left and right Armando, 5/4 pig. The procedure was well tolerated. The patient returned to the tate. Sheath removed. ExoSeal device placed. FINDINGS: Left ventriculography in 30-degree YARBROUGH view shows mid anterior, down to the anterior apex, apical region, and inferior apex marked hypokinesis, EF reduced 20%. CORONARY ANATOMY: LEFT MAIN: Left main is free of disease. LAD: Free of disease in the diagonal system. CIRCUMFLEX: Free of disease in the marginal system. RIGHT CORONARY ARTERY: Dominant artery, gives rise to PDA. IMPRESSION: Nonischemic cardiomyopathy. TRANSINT:[id number] Voice Confirmation ID: [id number] DOCUMENT ID: [id number] SUNNI AMARAL MD at 1526 CC: [id number] DICTATION DATE: 09/18/19 1501 MEDICAL SCIENTIFIC OFFICER: 09/18/192003 ADM IN [facility] [address] [place] [address]
--- NOTE | 2019-09-20 15:31 | NUR ---
OK TO DISCHARGE PER DR CRAWFORD
--- NOTE | 2019-09-20 15:50 | MORECARE ---
CASE MANAGEMENT DISCHARGE SUMMARY PATIENT: LINNEA GÓMEZ UNIT: [id number] ADM DATE: 09/17/19 AGE: 79 : 40 SEX: F ROOM/BED: [facility] AUTHOR: NEO KHANNA PHYSICIAN: REFERRING PHYSICIAN: FIDENCIO CABA MD DATE OF SERVICE: 09/20/19 Discharge Plan Patient Name: LINNEA GÓMEZ [facility] [facility] 1940 Planned Disposition: Home Anticipated Discharge Date: 09/20/19 Discharge Date: Expected LOS: 3 Initial Reviewer: [email or web address] Initial Review Date: 09/20/2019 Generated: 09/20/19 4:50 pm DCPIA - Discharge Planning Initial Assessment Updated by [email or web address]: Tamara Nguyen on 09/20/19 3:49 pm * Is the patient Alert and Oriented? Yes * How many steps to enter\exit or inside your home? * PCP Dr. Basil Souza * Pharmacy [facility] [place]: * Preadmission Environment Home Alone * ADLs Independent * Equipment Walker * List name and contact numbers for known caregivers / representatives who currently or will assist patient after discharge: Prabha Do, daughter, * Verbal permission to speak to the caregivers and representatives has been obtained from the patient. Yes * Community resources currently utilized Home Health * Please name any agencies selected above. [facility] * Additional services required to return to the preadmission environment? No * Can the patient safely return to the preadmission environment? Yes * Has this patient been hospitalized within the prior 30 days at any hospital? No Patient Name: LINNEA GÓMEZ Page [id number] at 1550 All edits/amendments must be made on the electronic document DICTATION DATE: 09/20/19 1550 MOLDER PUNCH: NIKHIL 09/20/19 1550 RPT#: [id number] DC DATE: STATUS: ADM IN [facility] [address] [place] [address] END OF REPORT
--- NOTE | 2019-09-20 15:59 | MORECARE ---
CASE MANAGEMENT DISCHARGE SUMMARY PATIENT: LINNEA GÓMEZ UNIT: [id number] ADM DATE: 09/17/19 AGE: 79 : 40 SEX: F ROOM/BED: D.06 AUTHOR: NEO KHANNA PHYSICIAN: REFERRING PHYSICIAN: FIDENCIO CABA MD DATE OF SERVICE: 09/20/19 Discharge Plan Patient Name: LINNEA GÓMEZ Facility: [facility]:[place] : 1940 Planned Disposition: Home Anticipated Discharge Date: 09/20/19 Discharge Date: Expected LOS: 3 Initial Reviewer: [email or web address] Initial Review Date: 09/20/2019 Generated: 09/20/19 4:58 pm Comments DCP- Discharge Planning Updated by [id number]: Tamara Nguyen on 09/20/19 2:[address] Patient Name: LINNEA GÓMEZ Admission Status: ER Accout number: [id number] Admission Date: 09-17-2019 : 1940 Admission Diagnosis:HEART FAILURE, UNSPECIFIED Attending: FIDENCIO CABA Current LOS: 3 Anticipated DC Date: 09-20-2019 Planned Disposition: Home Primary Insurance: MEDICARE A & B Discharge Planning Comments: CM met with patient to discuss discharge planning / needs. Patient states she plans to discharge to her daughter's house in [place] because the patient live alone. Daughter, Prabha Do, has gone to [employer] to get the patient some clothes for discharge. Patient states the home environment is safe. Denies any discharge needs at this time. States daughter will drive her home upon DC. States she gets home health from [facility] and hospice home health aide, but doesn't remember name of agency. States she has a walker. Denied any other community resource needs at this time. CM explained DC IMM. Signed copy on chart. CM will continue to follow and assist as needed with discharge planning needs. Engraver Signature: Tamara Nguyen DCPIA - Discharge Planning Initial Assessment Updated by [id number]: Tamara Nguyen on 09/20/19 3:49 pm * Is the patient Alert and Oriented? Yes * How many steps to enter\exit or inside your home? * PCP Dr. Basil Souza * Pharmacy [facility]: * Preadmission Environment Home Alone * ADLs Independent * Equipment Walker * List name and contact numbers for known caregivers / representatives who currently or will assist patient after discharge: Prabha Do, daughter, * Verbal permission to speak to the caregivers and representatives has been obtained from the patient. Yes * Community resources currently utilized Home Health * Please name any agencies selected above. [facility] * Additional services required to return to the preadmission environment? No * Can the patient safely return to the preadmission environment? Yes * Has this patient been hospitalized within the prior 30 days at any hospital? No Coverage Notice Reviewer: [id number] Sam Nguyen Notice Issued Date-Time: 09/20/2019 15:05 Notice Type: IM Discharge Notice Notice Delivered To: Patient Relationship to Patient: Self Electronic Assembler Name: Delivery Method: HAND - Hand Delivered Irish Days: Prior Verbal Notification: Recipient Understood Notice: Yes Recipient Signature: Yes Med Rec Note Co-signed by Attending: Coverage Notice Comment: Last DP export: 09/20/19 2:50 p Patient Name: LINNEA GÓMEZ Page [phone] at 1559 All edits/amendments must be made on the electronic document DICTATION DATE: 09/20/191558 WEIGHT TRAINING INSTRUCTOR: NIKHIL 09/20/191558 RPT#: [id number] DC DATE: STATUS: ADM IN [facility] [address] [place] [address] END OF REPORT
--- NOTE | 2019-09-20 16:58 | NUR ---
WRITTEN AND VERBAL DISCHARGE INSTRUCTIONS GIVEN DAUGHTER VERBALZED UNDERSTANDING FOLLOW UP APPT MADE WITH DR AMARAL ESCORTED TO CAR VIA WHEELCHAIR
--- NOTE | 2019-09-21 12:23 | MORECARE ---
CASE MANAGEMENT DISCHARGE SUMMARY PATIENT: LINNEA GÓMEZ UNIT: [id number] ADM DATE: 09/17/19 AGE: 79 : 40 SEX: F ROOM/BED: D.06 AUTHOR: JEYDOC PHYSICIAN: REFERRING PHYSICIAN: FIDENCIO CABA MD DATE OF SERVICE: 09/21/19 Discharge Plan Patient Name: LINNEA GÓMEZ Facility: [facility]:[place] : 1940 Planned Disposition: Home Anticipated Discharge Date: 09/20/19 Discharge Date: 09/20/2019 Expected LOS: 3 Initial Reviewer: [email or web address] Initial Review Date: 09/20/2019 Generated: 09/21/19 1:22 pm Comments DCP- Discharge Planning Updated by [id number]: Tamara Nguyen on 09/20/19 2:[address] Patient Name: LINNEA GÓMEZ Admission Status: ER Accout number: [id number] Admission Date: 09-17-2019 : 1940 Admission Diagnosis:HEART FAILURE, UNSPECIFIED Attending: FIDENCIO CABA Current LOS: 3 Anticipated DC Date: 09-20-2019 Planned Disposition: Home Primary Insurance: MEDICARE A & B Discharge Planning Comments: CM met with patient to discuss discharge planning / needs. Patient states she plans to discharge to her daughter's house in [place] because the patient live alone. Daughter, Prabha Do, has gone to [employer] to get the patient some clothes for discharge. Patient states the home environment is safe. Denies any discharge needs at this time. States daughter will drive her home upon DC. States she gets home health from [facility] and personal injury legal assistant, but doesn't remember name of agency. States she has a walker. Denied any other community resource needs at this time. CM explained DC IMM. Signed copy on chart. CM will continue to follow and assist as needed with discharge planning needs. Prisoner Classification Interviewer: Tamara Nguyen DCPIA - Discharge Planning Initial Assessment Updated by [email or web address]: Tamara Nguyen on 09/20/19 3:49 pm * Is the patient Alert and Oriented? Yes * How many steps to enter\exit or inside your home? * PCP Dr. Basil Souza * Pharmacy [facility]: * Preadmission Environment Home Alone * ADLs Independent * Equipment Walker * List name and contact numbers for known caregivers / representatives who currently or will assist patient after discharge: Prabha Do, daughter, * Verbal permission to speak to the caregivers and representatives has been obtained from the patient. Yes * Community resources currently utilized Home Health * Please name any agencies selected above. [facility] * Additional services required to return to the preadmission environment? No * Can the patient safely return to the preadmission environment? Yes * Has this patient been hospitalized within the prior 30 days at any hospital? No Coverage Notice Reviewer: [email or web address] Sam Nguyen Notice Issued Date-Time: 09/20/2019 15:05 Notice Type: IM Discharge Notice Notice Delivered To: Patient Relationship to Patient: Self Apiculturist Name: Delivery Method: HAND - Hand Delivered Irish Days: Prior Verbal Notification: Recipient Understood Notice: Yes Recipient Signature: Yes Med Rec Note Co-signed by Attending: Coverage Notice Comment: Last DP export: 09/20/19 2:59 p Patient Name: LINNEA GÓMEZ Page [phone] at 1223 All edits/amendments must be made on the electronic document DICTATION DATE: 09/21/19 122 FILM WASHER: NIKHIL 09/21/19 1222 RPT#: [id number] DC DATE:09/20/19 STATUS: DIS IN [facility] [address] [place] [address] END OF REPORT
== END 2019-09-20 17:59 | disposition home or self-care (01) | DRG 280 ==
LOC: D.ER 11:15 → D.M2 13:23 → D.CVICU 13:23
PROVIDERS: Family Medicine; Internal Medicine Interventional Cardiology; ADMIT Emergency Medicine; ATTEND Emergency Medicine
PROC: B2151ZZ Fluoroscopy of Left Heart using Low Osmolar Contrast (ICD-10-PCS; 2019-09-18)
PROC: 4A023N7 Measurement of Cardiac Sampling and Pressure, Left Heart, Percutaneous Approach (ICD-10-PCS; 2019-09-18)
PROC: B2111ZZ Fluoroscopy of Multiple Coronary Arteries using Low Osmolar Contrast (ICD-10-PCS; principal; 2019-09-18 14:00)
DX: I11.0 Hypertensive heart disease with heart failure (principal); I21.A1 Myocardial infarction type 2; J96.01 Acute respiratory failure with hypoxia; I50.9 Heart failure, unspecified; I27.20 Pulmonary hypertension, unspecified; E78.5 Hyperlipidemia, unspecified; I10 Essential (primary) hypertension; I95.9 Hypotension, unspecified; E03.9 Hypothyroidism, unspecified; G20 Parkinson's disease; I42.8 Other cardiomyopathies